=== PATIENT | male | born 1950 | race Caucasian/White ===

== ENCOUNTER 2016-11-19 18:44 | Emergency (ER) | payer MEDICARE ==
[2016-11-19 20:27] LABS: CALCIUM LEVEL 9.3 MG/DL (8.8-10.2); CREATININE FOR GFR 1.56 MG/DL (0.70-1.30); GLOMERULAR FILTRATION RATE 47.4 (>49); POTASSIUM SERUM 3.7 MEQ/L (3.5-5.1)
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
== END 2016-11-19 20:54 | disposition home or self-care (01) ==
LOC: EDBD 18:44 → M ED 18:44
DX: T69.9XXA Effect of reduced temperature, unspecified, initial encounter (principal); V86.92XA Unspecified occupant of snowmobile injured in nontraffic accident, initial encounter; X31.XXXA Exposure to excessive natural cold, initial encounter; Y92.89 Other specified places as the place of occurrence of the external cause; Y99.9 Unspecified external cause status; I10 Essential (primary) hypertension; J45.909 Unspecified asthma, uncomplicated; Z87.891 Personal history of nicotine dependence; Z79.899 Other long term (current) drug therapy